=== PATIENT | female | born 1960 | race Two or more races ===

== ENCOUNTER 2019-06-06 12:19 | Outpatient (CLI) | payer OTHER | END 2019-06-06 12:40 | disposition home or self-care (01) | LOC: MAMO-SONO 12:19 | DX: N60.11 Diffuse cystic mastopathy of right breast (principal); N60.12 Diffuse cystic mastopathy of left breast ==

== ENCOUNTER 2019-06-24 06:20 | Day surgery (SDC) | payer OTHER ==
[~2019-06-24 06:20] MED LIST: ADVIL PO
== END 2019-06-24 14:15 | disposition home or self-care (01) ==
LOC: CIR.AMB 06:20
DX: D24.1 Benign neoplasm of right breast (principal)

== ENCOUNTER 2023-09-28 11:30 | Inpatient (IN) | payer OTHER ==
[~2023-09-28] VITALS: Ht 152.4 cm; Wt 113.4 kg
[2023-09-28] MEDS ORDERED: TENORMIN25 MG PO (15:55)
[2023-09-28] MEDS ORDERED: ATIVAN0.5 M1 PO (15:55)
[2023-10-01 17:05] LABS: ALBUMIN 3.5 gm/dL (3.4-5.0); ALKALINE PHOSPHATASE 67 U/L (50-136); ALT/SGPT 24 U/L (12-78); ANION GAP 12 (10.0-20.0); AST/SGOT 12 U/L (15-37); BILIRUBIN TOTAL 0.95 mg/dL (0.3-1.2); BLOOD UREA NITROGEN 14 mg/dL (7-18); BUN CREA RATIO 21 (7.0-25.0); CALCIUM 8.7 mg/dL (8.5-10.1); CARBON DIOXIDE 24 mEq/L (21-32); CHLORIDE 110 mmol/L (98-107); CREATININE SERUM 0.68 mg/dL (0.55-1.02); GFR 87.96; GLUCOSE FASTING 97 mg/dL (65-100); OSMOLALITY SERUM 284 MOSM/KG (275-295); PHOSPHOKINASE CREATININE 73 U/L (26-192); POTASSIUM 3.95 mEq/L (3.5-5.1); SODIUM 142 mmol/L (136-145); TOTAL PROTEIN 6.5 gm/dL (6.4-8.2)
[2023-10-01 17:20] LABS: CKMB < 1.0 NG/ML (0.5-3.6)
[2023-10-01 19:48] LABS: ABG PH 7.388 (7.35-7.45)
[2023-10-01 19:49] LABS: ABG PO2 446.3 mmHg (80-100); ABG pCO2 33.9 mmHg (35-45); BASE EXCESS -4.1 mmol/l
[2023-10-01 19:50] LABS: allen test SATISFACTORY; o2 100 %; puncture site RADIAL LEFT
== END 2023-10-02 14:35 | disposition home or self-care (01) | DRG 761 ==
LOC: O/R 10-01 06:00 → SURG 10-01 07:00 → O/R 10-02 14:35
PROVIDERS: Internal Medicine; ADMIT Obstetrics & Gynecology; ATTEND Obstetrics & Gynecology
PROC: B246ZZZ Ultrasonography of Right and Left Heart (ICD-10-PCS; 2023-10-01)
PROC: 4A033R1 Measurement of Arterial Saturation, Peripheral, Percutaneous Approach (ICD-10-PCS; principal; 2023-10-01 07:00)
DX: N93.9 Abnormal uterine and vaginal bleeding, unspecified (principal); Z53.09 Procedure and treatment not carried out because of other contraindication; D25.9 Leiomyoma of uterus, unspecified; N84.0 Polyp of corpus uteri; Z20.822 Contact with and (suspected) exposure to COVID-19; I49.8 Other specified cardiac arrhythmias; I95.89 Other hypotension